=== PATIENT | female | born 1945 | race Caucasian/White ===

== ENCOUNTER 2018-06-30 05:52 | Inpatient (IN) ==
[2018-06-30] MEDS ORDERED: ceFAZolin 1,000 MG in SYRINGE 1 EACH IV ONE (06:00)
[2018-06-30] MEDS ORDERED: VANCOMYCIN INJ 1,000 MG in SODIUM CHLORIDE 0.9% 250 ML IV ONE (06:00)
[2018-06-30] MEDS ORDERED: ceFAZolin 1,000 MG VIAL ONE (06:32)
[2018-06-30] MEDS ORDERED: VANCOMYCIN 1,000 MG VIAL ONE (06:32)
[2018-06-30] MEDS ORDERED: ALBUTEROL/IPRATROPIUM 3 ML NEB RESP TX ONE ×3 (07:23→10:35)
[2018-06-30] MEDS ORDERED: FAMOTIDINE 20 MG TABLET PO ONE (07:23)
[2018-06-30] MEDS ORDERED: FAMOTIDINE 20 MG TABLET ONE (07:29)
[2018-06-30] MEDS ORDERED: LACTATED RINGERS 1,000 ML IV SCH (07:30)
[2018-06-30] MEDS ORDERED: ROPIVACAINE 0.5% 30 ML VIAL ONE (07:51)
[2018-06-30] MEDS ORDERED: BECLOMETHASONE 40 MCG/PUFF INHALER 8.7 GM INH PRN (08:57)
[2018-06-30] MEDS ORDERED: oxyCODONE IR 5 MG TABLET PO PRN (08:59)
[2018-06-30] MEDS ORDERED: ZALEPLON 5 MG CAPSULE PO PRN (08:59)
[2018-06-30] MEDS ORDERED: ONDANSETRON 4 MG/2 ML VIAL IV PRN ×2 (08:59→10:42)
[2018-06-30] MEDS ORDERED: diphenhydrAMINE CAP 25 MG CAPSULE PO PRN (08:59)
[2018-06-30] MEDS ORDERED: MAGNESIUM HYDROXIDE SUSP 30 ML UDCUP PO PRN (08:59)
[2018-06-30] MEDS ORDERED: MORPHINE 4 MG/1 ML VIAL IV PRN ×2 (08:59)
[2018-06-30] MEDS ORDERED: BACITRACIN OINT 0.9 GM PACK TOP ONE (09:48)
[2018-06-30] MEDS ORDERED: ONDANSETRON 4 MG/2 ML VIAL ONE (10:39)
[2018-06-30] MEDS ORDERED: BUPIVACAINE SPINAL 0.75% 2 ML AMP SPINAL ONE (10:39)
[2018-06-30] MEDS ORDERED: TRANEXAMIC ACID 1,000 MG/10 ML VIAL ONE (10:39)
[2018-06-30] MEDS ORDERED: PROPOFOL 500 MG/50 ML BOTTLE IV ONE (10:39)
[2018-06-30] MEDS ORDERED: MIDAZOLAM 2 MG/2 ML VIAL ONE (10:39)
[2018-06-30] MEDS ORDERED: ACETAMINOPHEN 1,000 MG/100 ML VIAL IV ONE (10:39)
[2018-06-30] MEDS ORDERED: fentaNYL 100 MCG/2 ML VIAL ONE (10:39)
[2018-06-30] MEDS ORDERED: SEVOFLURANE 1 UNIT/15 MINUTE INH ONE (10:39)
[2018-06-30] MEDS ORDERED: ROCURONIUM 100 MG/10 ML VIAL IV ONE (10:40)
[2018-06-30] MEDS ORDERED: SUCCINYLCHOLINE 200 MG/10 ML VIAL ONE (10:40)
[2018-06-30] MEDS: HYDROmorphone 2 MG/1 ML VIAL IV PRN ×3 (10:50→11:21)
[2018-06-30] MEDS: LACTATED RINGERS 1,000 ML IV SCH ×2 (11:50→17:47)
[2018-06-30] MEDS: KETOROLAC 15 MG/1 ML VIAL IV SCH ×2 (12:13→17:45)
[2018-06-30] MEDS: ACETAMINOPHEN 500 MG TABLET PO SCH ×2 (12:14→18:20)
[2018-06-30] MEDS: THEOPHYLLINE ER 300 MG TABLET PO SCH (13:10)
[2018-06-30] MEDS: LOSARTAN 25 MG TABLET PO SCH (13:10)
[2018-06-30] MEDS: ALBUTEROL 2 MG TABLET PO SCH (13:11)
[2018-06-30] MEDS: DOCUSATE SODIUM 100 MG CAPSULE PO SCH ×2 (13:11→20:13)
[2018-06-30] MEDS: MONTELUKAST 10 MG TABLET PO SCH (13:11)
[2018-06-30] MEDS: PANTOPRAZOLE 40 MG TABLET PO SCH (13:11)
[2018-06-30] MEDS: POTASSIUM CHLORIDE 10 MEQ TABLET PO SCH (13:11)
[2018-06-30] MEDS: METOCLOPRAMIDE 10 MG TABLET PO SCH (13:11)
[2018-06-30 13:17] LABS: Calcium 8.4 MG/DL (8.5-10.1); Osmolality,Calculated 286.3 MOS/KG (273-304); Potassium 4.1 MMOL/L (3.5-5.1)
[2018-06-30] MEDS: INSULIN LISPRO 100 UNIT/ML SUBCUT SCH ×2 (13:39→16:45)
[2018-06-30] MEDS: metFORMIN 500 MG TABLET PO SCH (16:45)
[2018-06-30] MEDS: ceFAZolin 2,000 MG in PREMIX 1 EACH IV SCH (16:46)
[2018-06-30] MEDS: MAGNESIUM CHLORIDE 64 MG TABLET PO SCH (20:12)
[2018-06-30] MEDS: sitaGLIPtin 100 MG TABLET PO SCH (20:12)
[2018-06-30] MEDS ORDERED: OMEPRAZOLE 40 MG PO SCH (21:00)
[2018-07-01] MEDS: KETOROLAC 15 MG/1 ML VIAL IV SCH ×2 (00:09→06:36)
[2018-07-01] MEDS: ACETAMINOPHEN 500 MG TABLET PO SCH ×2 (01:21→06:34)
[2018-07-01] MEDS: ceFAZolin 2,000 MG in PREMIX 1 EACH IV SCH (01:22)
[2018-07-01] MEDS: FONDAPARINUX 2.5 MG/0.5 ML SYRINGE SUBCUT SCH (03:04)
[2018-07-01 05:17] LABS: Basophils % 0.2 % (0.0-0.8); Eosinophils # 0.3 10*3/uL (0.0-0.87); Eosinophils % 2.9 % (0.00-10.9); Hematocrit 32.7 VOL% (35.7-47.0); Hemoglobin 10.8 GM/DL (12.0-16.0); Immature Granulocytes % 0.8 %; Immature Granulocytes Absolute 0.07 #; Lymphocytes # 1.1 10*3/uL (1.4-4.0); Lymphocytes % 12.2 % (21.3-54.2); Mean Corpuscular Hemoglobin 30 PG (27-34); Mean Corpuscular Volume 91.1 FL (87-102); Mean Platelet Volume 11.4 FL (9.6-12.0); Monocytes # 1.1 10*3/uL (0.11-0.8); Monocytes % 12.5 % (1.7-12.7); Neutrophils # 6.2 10*3/uL (1.4-7.4); Neutrophils % 71.4 % (38.7-73.9); Platelet Count 141 T/CUMM (130-400); Red Blood Count 3.59 MC/CUMM (3.8-5.5); Red Cell Distribution Width 13.4 % (9.3-17.3); White Blood Count 8.6 T/CUMM (4-12)
[2018-07-01 05:41] LABS: Calcium 8.1 MG/DL (8.5-10.1); Osmolality,Calculated 282.4 MOS/KG (273-304)
[2018-07-01] MEDS: metFORMIN 500 MG TABLET PO SCH ×2 (08:32→16:46)
[2018-07-01] MEDS: PANTOPRAZOLE 40 MG TABLET PO SCH (08:32)
[2018-07-01] MEDS: DOCUSATE SODIUM 100 MG CAPSULE PO SCH ×2 (08:32→20:50)
[2018-07-01] MEDS: MONTELUKAST 10 MG TABLET PO SCH (08:32)
[2018-07-01] MEDS: METOCLOPRAMIDE 10 MG TABLET PO SCH (08:33)
[2018-07-01] MEDS: INSULIN LISPRO 100 UNIT/ML SUBCUT SCH ×3 (08:33→16:46)
[2018-07-01] MEDS: POTASSIUM CHLORIDE 10 MEQ TABLET PO SCH (08:33)
[2018-07-01] MEDS: INSULIN GLARGINE 100 UNIT/ML SUBCUT SCH ×2 (08:33→20:50)
[2018-07-01] MEDS: THEOPHYLLINE ER 300 MG TABLET PO SCH (08:33)
[2018-07-01] MEDS: LOSARTAN 25 MG TABLET PO SCH (08:56)
[2018-07-01] MEDS: ALBUTEROL 2 MG TABLET PO SCH (09:00)
[2018-07-01] MEDS ORDERED: IPRATROPIUM 500 MCG/2.5 ML NEB RESP TX PRN (10:15)
[2018-07-01] MEDS: IPRATROPIUM 500 MCG/2.5 ML NEB RESP TX SCH ×2 (11:14→19:27)
[2018-07-01] MEDS: LACTATED RINGERS 1,000 ML IV SCH (11:15)
[2018-07-01] MEDS: CELECOXIB 200 MG CAPSULE PO SCH (14:36)
[2018-07-01] MEDS: oxyCODONE IR 5 MG TABLET PO PRN (14:37)
[2018-07-01] MEDS: sitaGLIPtin 100 MG TABLET PO SCH (20:50)
[2018-07-01] MEDS: MAGNESIUM CHLORIDE 64 MG TABLET PO SCH (20:50)
[2018-07-02] MEDS: FONDAPARINUX 2.5 MG/0.5 ML SYRINGE SUBCUT SCH (03:04)
[2018-07-02 04:55] LABS: Basophils % 0.2 % (0.0-0.8); Eosinophils # 0.3 10*3/uL (0.0-0.87); Eosinophils % 3.6 % (0.00-10.9); Hematocrit 32.2 VOL% (35.7-47.0); Hemoglobin 10.6 GM/DL (12.0-16.0); Immature Granulocytes % 0.4 %; Immature Granulocytes Absolute 0.03 #; Lymphocytes # 1.4 10*3/uL (1.4-4.0); Lymphocytes % 17.8 % (21.3-54.2); Mean Corpuscular HGB Conc 32.9 GM/DL (32-36); Mean Corpuscular Hemoglobin 30 PG (27-34); Mean Corpuscular Volume 90.7 FL (87-102); Mean Platelet Volume 11.4 FL (9.6-12.0); Monocytes % 11.8 % (1.7-12.7); Neutrophils # 5.3 10*3/uL (1.4-7.4); Neutrophils % 66.2 % (38.7-73.9); Platelet Count 139 T/CUMM (130-400); Red Blood Count 3.55 MC/CUMM (3.8-5.5); Red Cell Distribution Width 13.3 % (9.3-17.3)
[2018-07-02] MEDS: IPRATROPIUM 500 MCG/2.5 ML NEB RESP TX SCH ×2 (07:00→22:52)
[2018-07-02] MEDS: INSULIN LISPRO 100 UNIT/ML SUBCUT SCH ×2 (08:16→11:41)
[2018-07-02] MEDS: metFORMIN 500 MG TABLET PO SCH (08:16)
[2018-07-02] MEDS: PANTOPRAZOLE 40 MG TABLET PO SCH (08:16)
[2018-07-02] MEDS: CELECOXIB 200 MG CAPSULE PO SCH (08:16)
[2018-07-02] MEDS: MONTELUKAST 10 MG TABLET PO SCH (08:16)
[2018-07-02] MEDS: DOCUSATE SODIUM 100 MG CAPSULE PO SCH (08:16)
[2018-07-02] MEDS: THEOPHYLLINE ER 300 MG TABLET PO SCH (08:16)
[2018-07-02] MEDS: LOSARTAN 25 MG TABLET PO SCH (08:16)
[2018-07-02] MEDS: POTASSIUM CHLORIDE 10 MEQ TABLET PO SCH (08:16)
[2018-07-02] MEDS: METOCLOPRAMIDE 10 MG TABLET PO SCH (08:16)
[2018-07-02] MEDS: INSULIN GLARGINE 100 UNIT/ML SUBCUT SCH (08:17)
[2018-07-02] MEDS: oxyCODONE IR 5 MG TABLET PO PRN (08:24)
[2018-07-02] MEDS: ALBUTEROL 2 MG TABLET PO SCH (08:24)
[2018-07-02 16:33] VITALS: BP 157/75
== END 2018-07-02 15:35 | DRG 470 ==
LOC: N.OR 05:52 → N.SDSINP 05:54 → N.3E 11:38
PROVIDERS: ADMIT Orthopaedic Surgery; ATTEND Orthopaedic Surgery

== ENCOUNTER 2019-05-21 12:17 | Inpatient (IN) ==
[2019-05-21] MEDS ORDERED: AZITHROMYCIN INJ 500 MG in SODIUM CHLORIDE 0.9% 250 ML IV STA (12:42)
[2019-05-21] MEDS ORDERED: methylPREDNISolone SOD SUC 125 MG/2 ML VIAL IV STA (12:42)
[2019-05-21] MEDS ORDERED: ONDANSETRON 4 MG/2 ML VIAL IV STA (12:42)
[2019-05-21] MEDS ORDERED: ALBUTEROL 2.5 MG/3 ML NEB RESP TX SCH (13:00)
[2019-05-21 13:04] LABS: Basophils % 0.3 % (0.0-0.8); Eosinophils # 0.1 10*3/uL (0.0-0.87); Eosinophils % 0.5 % (0.00-10.9); Hematocrit 40.8 VOL% (35.7-47.0); Hemoglobin 13.4 GM/DL (12.0-16.0); Immature Granulocytes % 0.6 %; Immature Granulocytes Absolute 0.07 #; Lymphocytes % 16.9 % (21.3-54.2); Mean Corpuscular HGB Conc 32.8 GM/DL (32-36); Mean Corpuscular Volume 87.4 FL (87-102); Mean Platelet Volume 12.1 FL (9.6-12.0); Neutrophils % 71.7 % (38.7-73.9); Platelet Count 169 T/CUMM (130-400); Red Blood Count 4.67 MC/CUMM (3.8-5.5); Red Cell Distribution Width 14.3 % (9.3-17.3); White Blood Count 11.5 T/CUMM (4-12)
[2019-05-21 13:12] LABS: Allen Test Positive
[2019-05-21 13:13] LABS: ABG HCO3 24.4 MMOL/L (20-26); ABG Oxygen Saturation 96.3 % (95-100); ABG PCO2 34.7 MM HG (35-48); ABG PH 7.439 (7.35-7.45); ABG PO2 83.3 MM HG (80-95); ABG TCO2 20.4 MMOL/L (23-27)
[2019-05-21 13:16] LABS: INR 0.9; Partial Thromboplastin Time 22.4 SECS (20.8-36.0)
[2019-05-21] MEDS ORDERED: FUROSEMIDE 40 MG/4 ML VIAL IV STA (13:20)
[2019-05-21 13:23] LABS: Alanine Aminotransferase 52 U/L (13-56); Albumin 3.5 G/DL (3.4-5.0); Alkaline Phosphatase 110 U/L (45-117); Aspartate Amino Transferase 28 U/L (0-37); Blood Urea Nitrogen 21 MG/DL (7-18); Estimated Glom Filtration Rate 90 ML/MIN; Glucose 187 MG/DL (74-106); Osmolality,Calculated 288.3 MOS/KG (273-304); Troponin I 0.038 NG/ML (0.00-0.045)
[2019-05-21] MEDS ORDERED: ONDANSETRON 4 MG/2 ML VIAL IV PRN (14:37)
[2019-05-21] MEDS ORDERED: MORPHINE 4 MG/1 ML VIAL IV PRN (14:37)
[2019-05-21] MEDS ORDERED: DEXTROSE 10% 250 ML BAG IV PRN (14:45)
[2019-05-21] MEDS ORDERED: GLUCAGON 1 MG VIAL IM PRN (14:45)
[2019-05-21] MEDS ORDERED: methylPREDNISolone SOD SUC 40 MG/1 ML VIAL IV SCH (15:00)
[2019-05-21] MEDS: ACETAMINOPHEN 325 MG TABLET PO PRN (15:38)
[2019-05-21 15:40] LABS: Apearance,Urine CLEAR (Clear); Bilirubin,Urine Negative (Negative); Blood, Urine Negative (Negative); Glucose,Urine (UA) 50 mg/dL (Negative); Ketones,Urine Negative (Negative); Mucus,Urine Occasional /LPF (Occasional); Nitrite,Urine Negative (Negative); Protein,Urine Negative; RBC,Urine 1 /HPF (0-4); Squamous Epithelial Cell,Urine Occasional /HPF (0-10); Urine Color Yellow (Yellow); Urine Specific Gravity 1.013 (1.001-1.035); Urine Urobilinogen < 2.0 EU/DL (0.2-1.0); WBC,Urine 3 /HPF (0-6)
[2019-05-21] MEDS ORDERED: INSULIN LISPRO 100 UNIT/ML SUBCUT SCH (16:30)
[2019-05-21] MEDS: PIPERACILLIN/TAZOBACTAM 3,375 MG in SODIUM CHLORIDE 0.9% 100 ML IV SCH ×2 (16:43→22:35)
[2019-05-21] MEDS: ENOXAPARIN 40 MG/0.4 ML SYRINGE SUBCUT SCH (16:47)
[2019-05-21] MEDS ORDERED: predniSONE 20 MG TABLET PO SCH (16:54)
[2019-05-21] MEDS: ALBUTEROL/IPRATROPIUM 3 ML NEB RESP TX SCH (20:53)
[2019-05-21] MEDS: INSULIN REGULAR 100 UNIT/ML SUBCUT SCH (21:07)
[2019-05-22] MEDS: ALBUTEROL/IPRATROPIUM 3 ML NEB RESP TX SCH ×4 (00:39→19:31)
[2019-05-22 04:27] LABS: Basophils % 0.4 % (0.0-0.8); Hematocrit 38.1 VOL% (35.7-47.0); Hemoglobin 12.5 GM/DL (12.0-16.0); Immature Granulocytes % 0.6 %; Immature Granulocytes Absolute 0.05 #; Lymphocytes # 1.2 10*3/uL (1.4-4.0); Lymphocytes % 15.1 % (21.3-54.2); Mean Corpuscular HGB Conc 32.8 GM/DL (32-36); Mean Corpuscular Volume 86.2 FL (87-102); Mean Platelet Volume 11.9 FL (9.6-12.0); Monocytes % 12.2 % (1.7-12.7); Neutrophils % 71.7 % (38.7-73.9); Platelet Count 147 T/CUMM (130-400); Red Blood Count 4.42 MC/CUMM (3.8-5.5); Red Cell Distribution Width 14.4 % (9.3-17.3); White Blood Count 7.8 T/CUMM (4-12)
[2019-05-22] MEDS: ACETAMINOPHEN 325 MG TABLET PO PRN (04:28)
[2019-05-22 04:58] LABS: Albumin 3.4 G/DL (3.4-5.0); Bilirubin,Total 1.3 MG/DL (0.2-1.0); Calcium 8.5 MG/DL (8.5-10.1); Risk Ratio 4.58; Thyroid Stimulating Hormone 0.78 uIU/ml (0.358-3.74); Total Protein 6.7 G/DL (6.4-8.3)
[2019-05-22] MEDS: PIPERACILLIN/TAZOBACTAM 3,375 MG in SODIUM CHLORIDE 0.9% 100 ML IV SCH (06:03)
[2019-05-22] MEDS: guaiFENesin/DM ER 600-30 MG TABLET PO PRN (09:08)
[2019-05-22] MEDS: THEOPHYLLINE ER 300 MG TABLET PO SCH (09:09)
[2019-05-22] MEDS: predniSONE 20 MG TABLET PO SCH (09:09)
[2019-05-22] MEDS: LOSARTAN 25 MG TABLET PO SCH (09:09)
[2019-05-22] MEDS: INSULIN REGULAR 100 UNIT/ML SUBCUT SCH ×4 (09:10→22:22)
[2019-05-22] MEDS: PANTOPRAZOLE 40 MG TABLET PO SCH (09:10)
[2019-05-22] MEDS: MONTELUKAST 10 MG TABLET PO SCH (09:10)
[2019-05-22] MEDS: OXYBUTYNIN XL 10 MG TABLET PO SCH (09:10)
[2019-05-22] MEDS: LEVOFLOXACIN 500 MG TABLET PO SCH (09:14)
[2019-05-22] MEDS: ENOXAPARIN 40 MG/0.4 ML SYRINGE SUBCUT SCH (17:16)
[2019-05-23] MEDS: ALBUTEROL/IPRATROPIUM 3 ML NEB RESP TX SCH ×4 (01:03→20:04)
[2019-05-23 05:58] LABS: Basophils % 0.6 % (0.0-0.8); Eosinophils # 0.1 10*3/uL (0.0-0.87); Eosinophils % 1.5 % (0.00-10.9); Hematocrit 38.7 VOL% (35.7-47.0); Hemoglobin 12.7 GM/DL (12.0-16.0); Immature Granulocytes % 0.9 %; Immature Granulocytes Absolute 0.06 #; Lymphocytes # 2.1 10*3/uL (1.4-4.0); Lymphocytes % 30.7 % (21.3-54.2); Mean Corpuscular HGB Conc 32.8 GM/DL (32-36); Mean Corpuscular Volume 85.8 FL (87-102); Mean Platelet Volume 12.1 FL (9.6-12.0); Monocytes % 17.2 % (1.7-12.7); Neutrophils % 49.1 % (38.7-73.9); Platelet Count 149 T/CUMM (130-400); Red Blood Count 4.51 MC/CUMM (3.8-5.5); Red Cell Distribution Width 14.3 % (9.3-17.3); White Blood Count 6.7 T/CUMM (4-12)
[2019-05-23 06:25] LABS: Albumin 3.3 G/DL (3.4-5.0); Bilirubin,Total 0.8 MG/DL (0.2-1.0); Calcium 8.4 MG/DL (8.5-10.1); Osmolality,Calculated 279.4 MOS/KG (273-304); Total Protein 6.6 G/DL (6.4-8.3)
[2019-05-23 06:28] LABS: Band Neutrophils 5 % (0-10); Eosinophils 3 % (0-10); Lymphocytes 33 % (20-55); Metamyelocytes 1 %; Platelet Estimate Adequate; Segmented Neutrophils 44 % (50-85); Total Cells Counted 100
[2019-05-23 06:29] LABS: Anisocytosis 1+
[2019-05-23 06:30] LABS: Atypical Lymphocytes Few
[2019-05-23] MEDS: INSULIN REGULAR 100 UNIT/ML SUBCUT SCH ×4 (10:52→21:39)
[2019-05-23] MEDS: ACETAMINOPHEN 325 MG TABLET PO PRN (10:53)
[2019-05-23] MEDS: THEOPHYLLINE ER 300 MG TABLET PO SCH (10:53)
[2019-05-23] MEDS: predniSONE 20 MG TABLET PO SCH (10:53)
[2019-05-23] MEDS: OXYBUTYNIN XL 10 MG TABLET PO SCH (10:53)
[2019-05-23] MEDS: MONTELUKAST 10 MG TABLET PO SCH (10:53)
[2019-05-23] MEDS: PANTOPRAZOLE 40 MG TABLET PO SCH (10:54)
[2019-05-23] MEDS: LOSARTAN 25 MG TABLET PO SCH (10:54)
[2019-05-23] MEDS: LEVOFLOXACIN 500 MG TABLET PO SCH (10:54)
[2019-05-23] MEDS ORDERED: FUROSEMIDE 40 MG/4 ML VIAL IV ONE (12:21)
[2019-05-23] MEDS: ENOXAPARIN 40 MG/0.4 ML SYRINGE SUBCUT SCH (14:19)
[2019-05-24] MEDS: ALBUTEROL/IPRATROPIUM 3 ML NEB RESP TX SCH ×4 (00:57→19:17)
[2019-05-24 05:03] LABS: Basophils % 0.6 % (0.0-0.8); Eosinophils # 0.2 10*3/uL (0.0-0.87); Eosinophils % 2.1 % (0.00-10.9); Hematocrit 39.6 VOL% (35.7-47.0); Hemoglobin 12.9 GM/DL (12.0-16.0); Immature Granulocytes % 0.9 %; Immature Granulocytes Absolute 0.06 #; Lymphocytes # 2.5 10*3/uL (1.4-4.0); Lymphocytes % 34.8 % (21.3-54.2); Mean Corpuscular HGB Conc 32.6 GM/DL (32-36); Mean Corpuscular Volume 85.2 FL (87-102); Monocytes % 14.6 % (1.7-12.7); Platelet Count 148 T/CUMM (130-400); Red Blood Count 4.65 MC/CUMM (3.8-5.5)
[2019-05-24 05:42] LABS: Albumin 3.5 G/DL (3.4-5.0); Bilirubin,Total 0.4 MG/DL (0.2-1.0); Calcium 8.7 MG/DL (8.5-10.1); Osmolality,Calculated 279.7 MOS/KG (273-304); Total Protein 6.7 G/DL (6.4-8.3)
[2019-05-24] MEDS ORDERED: POTASSIUM CHLORIDE 20 MEQ TABLET PO PRN (07:28)
[2019-05-24] MEDS: LOSARTAN 25 MG TABLET PO SCH (10:17)
[2019-05-24] MEDS: MONTELUKAST 10 MG TABLET PO SCH (10:17)
[2019-05-24] MEDS: OXYBUTYNIN XL 10 MG TABLET PO SCH (10:17)
[2019-05-24] MEDS: predniSONE 20 MG TABLET PO SCH (10:17)
[2019-05-24] MEDS: THEOPHYLLINE ER 300 MG TABLET PO SCH (10:17)
[2019-05-24] MEDS: INSULIN REGULAR 100 UNIT/ML SUBCUT SCH ×5 (10:18→21:38)
[2019-05-24] MEDS: LEVOFLOXACIN INJ 500 MG in PREMIX 1 EACH IV SCH (10:18)
[2019-05-24] MEDS: PANTOPRAZOLE 40 MG TABLET PO SCH (10:18)
[2019-05-24] MEDS: methylPREDNISolone SOD SUC 40 MG/1 ML VIAL IV SCH (12:02)
[2019-05-24] MEDS: ALBUTEROL 2 MG TABLET PO SCH ×3 (12:05→21:11)
[2019-05-24] MEDS: FLUTICASONE 50 MCG NASAL SPRAY 16 GM BOTTLE BOTH NARES SCH ×2 (12:34→21:15)
[2019-05-24] MEDS: MUPIROCIN 2% OINT 22 GM TUBE TOP SCH ×2 (12:37→21:14)
[2019-05-24] MEDS: ENOXAPARIN 40 MG/0.4 ML SYRINGE SUBCUT SCH (16:52)
[2019-05-24] MEDS: guaiFENesin/DM ER 600-30 MG TABLET PO PRN (21:11)
[2019-05-25] MEDS: methylPREDNISolone SOD SUC 40 MG/1 ML VIAL IV SCH ×3 (00:19→23:01)
[2019-05-25] MEDS: ALBUTEROL/IPRATROPIUM 3 ML NEB RESP TX SCH ×4 (00:50→19:38)
[2019-05-25 05:36] LABS: Basophils % 0.1 % (0.0-0.8); Hematocrit 40.7 VOL% (35.7-47.0); Hemoglobin 13.6 GM/DL (12.0-16.0); Immature Granulocytes % 1.7 %; Immature Granulocytes Absolute 0.13 #; Lymphocytes # 1.2 10*3/uL (1.4-4.0); Lymphocytes % 15.4 % (21.3-54.2); Mean Corpuscular HGB Conc 33.4 GM/DL (32-36); Mean Corpuscular Volume 84.8 FL (87-102); Mean Platelet Volume 11.4 FL (9.6-12.0); Neutrophils % 78.8 % (38.7-73.9); Platelet Count 166 T/CUMM (130-400); Red Cell Distribution Width 13.8 % (9.3-17.3); White Blood Count 7.6 T/CUMM (4-12)
[2019-05-25 05:44] LABS: Calcium 8.8 MG/DL (8.5-10.1)
[2019-05-25] MEDS: ALBUTEROL 2 MG TABLET PO SCH ×3 (06:35→22:52)
[2019-05-25] MEDS: FLUTICASONE 50 MCG NASAL SPRAY 16 GM BOTTLE BOTH NARES SCH ×2 (10:24→21:10)
[2019-05-25] MEDS: MUPIROCIN 2% OINT 22 GM TUBE TOP SCH ×2 (10:25→21:10)
[2019-05-25] MEDS: OXYBUTYNIN XL 10 MG TABLET PO SCH (10:26)
[2019-05-25] MEDS: LOSARTAN 25 MG TABLET PO SCH (10:26)
[2019-05-25] MEDS: MONTELUKAST 10 MG TABLET PO SCH (10:27)
[2019-05-25] MEDS: THEOPHYLLINE ER 300 MG TABLET PO SCH (10:27)
[2019-05-25] MEDS: LEVOFLOXACIN INJ 500 MG in PREMIX 1 EACH IV SCH (10:28)
[2019-05-25] MEDS: INSULIN REGULAR 100 UNIT/ML SUBCUT SCH ×4 (10:28→22:52)
[2019-05-25] MEDS: PANTOPRAZOLE 40 MG TABLET PO SCH (10:29)
[2019-05-25] MEDS: CLOTRIMAZOLE 10 MG TROCHE PO SCH ×4 (11:34→22:51)
[2019-05-25] MEDS: FLUCONAZOLE 100 MG TABLET PO SCH (15:14)
[2019-05-25] MEDS: ENOXAPARIN 40 MG/0.4 ML SYRINGE SUBCUT SCH (15:15)
[2019-05-25] MEDS: metFORMIN 500 MG TABLET PO SCH (18:58)
[2019-05-26] MEDS: ALBUTEROL 2 MG TABLET PO SCH (06:48)
[2019-05-26] MEDS: CLOTRIMAZOLE 10 MG TROCHE PO SCH ×2 (06:48→09:38)
[2019-05-26 07:04] LABS: Basophils % 0.2 % (0.0-0.8); Hematocrit 39.7 VOL% (35.7-47.0); Immature Granulocytes % 1.5 %; Immature Granulocytes Absolute 0.15 #; Lymphocytes # 1.3 10*3/uL (1.4-4.0); Lymphocytes % 13.2 % (21.3-54.2); Mean Corpuscular HGB Conc 32.7 GM/DL (32-36); Mean Corpuscular Volume 85.7 FL (87-102); Mean Platelet Volume 11.8 FL (9.6-12.0); Monocytes % 3.9 % (1.7-12.7); Neutrophils % 81.2 % (38.7-73.9); Platelet Count 163 T/CUMM (130-400); Red Blood Count 4.63 MC/CUMM (3.8-5.5); Red Cell Distribution Width 14.1 % (9.3-17.3); White Blood Count 10.1 T/CUMM (4-12)
[2019-05-26] MEDS: ALBUTEROL/IPRATROPIUM 3 ML NEB RESP TX SCH ×2 (07:21)
[2019-05-26 07:35] LABS: Calcium 8.5 MG/DL (8.5-10.1); Osmolality,Calculated 286.8 MOS/KG (273-304)
[2019-05-26 08:44] VITALS: BP 114/62
[2019-05-26] MEDS: FLUTICASONE 50 MCG NASAL SPRAY 16 GM BOTTLE BOTH NARES SCH (09:36)
[2019-05-26] MEDS: LEVOFLOXACIN INJ 500 MG in PREMIX 1 EACH IV SCH (09:36)
[2019-05-26] MEDS: MUPIROCIN 2% OINT 22 GM TUBE TOP SCH (09:36)
[2019-05-26] MEDS: metFORMIN 500 MG TABLET PO SCH (09:37)
[2019-05-26] MEDS: MONTELUKAST 10 MG TABLET PO SCH (09:38)
[2019-05-26] MEDS: guaiFENesin/DM ER 600-30 MG TABLET PO PRN (09:38)
[2019-05-26] MEDS: FLUCONAZOLE 100 MG TABLET PO SCH (09:38)
[2019-05-26] MEDS: OXYBUTYNIN XL 10 MG TABLET PO SCH (09:38)
[2019-05-26] MEDS: THEOPHYLLINE ER 300 MG TABLET PO SCH (09:38)
[2019-05-26] MEDS: PANTOPRAZOLE 40 MG TABLET PO SCH (09:38)
[2019-05-26] MEDS: LOSARTAN 25 MG TABLET PO SCH (09:38)
[2019-05-26] MEDS: INSULIN REGULAR 100 UNIT/ML SUBCUT SCH ×2 (09:53→12:42)
[2019-05-26] MEDS: methylPREDNISolone SOD SUC 40 MG/1 ML VIAL IV SCH (11:46)
== END 2019-05-26 13:10 | disposition home or self-care (01) | DRG 191 ==
LOC: N.ED 12:17 → N.EDINP 12:17 → N.2W 16:12
PROVIDERS: ADMIT Internal Medicine; ATTEND Internal Medicine